=== PATIENT | male | born 1970 | race Caucasian/White ===

== ENCOUNTER 2018-09-21 03:36 | Emergency (ER) | payer SELFPAY ==
[~2018-09-21] VITALS: Ht 175.3 cm; Wt 79.4 kg
--- NOTE | 2018-09-21 03:36 | NUR ---
PATIENT PRESENTS TO ED WITH C/O ALOC . PT HARDEEP WAS SEEN IN THE STREET, COMBATIVE,WITH HALLUCINATION,AND PATIENT WAS PACING PER AMBULANCE PERSONNEL.5ML VERCED GIVEN IN FIELD.PATIENT ARRIVED WITH BILATERAL RESTRAINTS .PATIENT UNABLE TO ASSESS AT THIS TIME, PATIENT RESPOND TO PAIN. IV STARTED AT RT. AC 18G. TOLERATED WELL. DENIES N/V/D; SKIN IS PINK/WARM/DRY; ; LUNGS CLEAR BL; HR EVEN AND REGULAR; PT DENIES ANY FEVER, CP, SOB, OR COUGH . VSS; PATIENT POSITIONED FOR COMFORT; HOB ELEVATED; BEDRAILS UP X2; BED DOWN. ER MD MADE AWARE OF PT STATUS.
--- NOTE | 2018-09-21 03:37 | NUR ---
PATIENT NOT COMBATIVE AT THIS TIME. NO RESTRAINT REQUIRED.
[2018-09-21] MEDS ORDERED: NACL 0.9% 1,000 ML IV ONE (03:40)
[2018-09-21 03:42] VITALS: BP 150/100
--- NOTE | 2018-09-21 03:46 | NUR ---
EKG PERFORMED AT BEDSIDE WITH MICHAEL DEVI PRESENT. PT COVERED IN GOWN AND BLANKET DURING PROCEDURE.
--- NOTE | 2018-09-21 03:55 | NUR ---
BS 65 DR. PASTRANA MADE AWARE.
--- NOTE | 2018-09-21 04:00 | NUR ---
IN AND OUT CATHETERAZATION DONE.
--- NOTE | 2018-09-21 04:05 | NUR ---
ORANGE JUICE 480ML GIVEN. OK PER DR. PASTRANA. PATIENT TOLERATED WELL.
[2018-09-21 04:17] LABS: HEMATOCRIT 39.3 % (36-52); HEMOGLOBIN 13.1 g/dL (12.0-18.0); MEAN CORPUSCULAR HEMOGLOBIN 31 pg (27-31); MEAN CORPUSCULAR HGB CONC 33 g/dL (33-37); MEAN CORPUSCULAR VOLUME 93.8 fL (80-94); PLATELET COUNT (AUTO) 101 K/uL (140-450); RED BLOOD CELL COUNT(AUTO) 4.19 MIL/uL (4.20-6.10); RED CELL DISTRIBUTION WIDTH 14.7 % (11.6-13.7); WHITE BLOOD COUNT (AUTO) 12.6 K/uL (4.8-10.8)
--- NOTE | 2018-09-21 04:21 | NUR ---
UA SENT TO LAB
[2018-09-21 04:28] LABS: LYMPHOCYTES % (MANUAL) 6 % (20-46)
[2018-09-21 04:29] LABS: BARBITURATE, URINE NEG. ng/ml (NEG <=200); BENZODIAZEPINE, URINE POS. ng/mL (NEG <=200); CANNABINOID, URINE NEG. ng/mL (NEG <=50); COCAINE, URINE NEG. ng/mL (NEG <=300); OPIATE, URINE NEG. ng/mL (NEG <=2000); PHENCYCLIDINE SCREEN,URINE NEG. ng/mL (NEG <=25)
[2018-09-21 04:29] LABS: MONOCYTES % (MANUAL) 8 % (5-12)
[2018-09-21 04:30] LABS: ANION GAP 16.4 (8-16); CARBON DIOXIDE 25.2 mmol/L (21-32); CHLORIDE 97 mmol/L (98-107); CREATININE 1.4 mg/dL (0.7-1.3); GFR ARICAN-AMERICAN 69 mL/min (>90); GLUCOSE 65 mg/dL (74-106); POTASSIUM 3.6 mmol/L (3.5-5.1); SODIUM SERUM 135 mmol/L (136-145); UREA NITROGEN, BLOOD 14 mg/dL (7-18)
[2018-09-21 04:36] LABS: ALBUMIN 4.3 g/dL (3.4-5.0); ASPARTATE AMINOTRANSFERASE 71 U/L (15-37); TOTAL BILIRUBIN 1.3 mg/dL (0.0-1.0)
[2018-09-21 04:37] LABS: ACETAMINOPHEN < 0.5 ug/ml (10-30); SALICYLATE < 2.8 mg/dL (2.8-20.0)
--- NOTE | 2018-09-21 04:59 | NUR ---
OSLEDADECK BS 101. DR. PASTRANA MADE AWARE.
--- NOTE | 2018-09-21 06:58 | NUR ---
PT SUCCESFFULLY PASSED ROAD TEST OF APPROXIMATELY 40 FEET
[2018-09-21 07:08] VITALS: BP 109/74
--- NOTE | 2018-09-21 07:14 | NUR ---
Patient discharged with v/s stable. Written and verbal after care instructions given and explained. Patient verbalized understanding. Ambulatory with steady gait. All questions addressed prior to discharge. Advised to follow up with PMD.
--- NOTE | 2018-09-21 07:21 | NUR ---
Patient given written and verbal discharge instructions and verbalizes understanding. Given copies of tests performed during visit. Patient is awake, alert and oriented. Ambulatory with steady gait. Refuses offer of skilled nursing placement. Given list of available shelters in surrounding areas. BUS PASS GIVEN TO PATIENT,FOOD PROVIDED AND CLOTHES, TOILETRIES.
[2018-09-21 09:50] LABS: RAPID PLASMA REAGIN NON-REACTIVE (Non Reactiv)
[2018-09-22 07:15] LABS: HEPATITIS B SURFACE ANTIGEN Negative (Negative)
== END 2018-09-21 07:14 | disposition home or self-care (01) ==
LOC: MED 03:36
DX: F15.10 Other stimulant abuse, uncomplicated (principal); R41.82 Altered mental status, unspecified
CPT/HCPCS: 36415; 80053; 80305; 82948; 85025; 86592; 86703; 86803; 87340; 93005; 99284; G0480; G0482; J7030